=== PATIENT | male | born 1985 | race African-American/Black ===

== ENCOUNTER 2016-12-04 09:22 | Emergency (ER) | payer SELFPAY ==
[2016-12-04] MEDS ORDERED: Meclizine HCl 25 MG TAB ONE (10:04)
--- NOTE | 2016-12-04 10:24 | PICIS ---
[facility] EMERGENCY RECORD TRIAGE (FriDec 04, 2016 09:25 MCBE) TRIAGE NOTES: dizzy since yesterday. woke up dizzy with nausea. (FriDec 04, 2016 09:25 MCBE) PATIENT: NAME: Tera Zuniga II, AGE: 30, GENDER: male, : Fri1985, TIME OF GREET: FriDec 04, 2016 09:23, PREFERRED LANGUAGE: Slovenian, ETHNICITY: Not or , ECODE BILLING MAP: [facility], SSN: [id number], Zip Code: [address], KG WEIGHT: 102.06, PHONE: , , , PERSON ID: [id number]. (FriDec 04, 2016 09:25 MCBE) COMPLAINT: DIZZY. (FriDec 04, 2016 09:25 MCBE) ADMISSION: URGENCY: 3 Urgent, ADMISSION SOURCE: Home, TRANSPORT: CAR, BED: ER -02. (FriDec 04, 2016 09:25 MCBE) ASSESSMENT: Assessment: patient is in NAD. walked without difficulty from waiting room to room 2. patient reports when stands up that the room and items around him start to spin. patient reports that when he lays down that he has to lay on his back, if he lays on his side he feels dizzy and feels like he is going to vomit, Symptoms began 12/03/2016. (09:30 MCBE) IMMUNIZATIONS: Flu vaccine not up to date, Tetanus immunization up to date. (09:30 MCBE) SIRS SCORING: Heart Rate 55-109 (0), Temp range 96.8-101.1 (0), respiratory rate 12-24 (0), Mental Status altered: no (0), Infection or Suspected Infection: No. (09:30 MCBE) TRIAGE SCREENING: Patient denies suicidal ideation, Patient denies presence of domestic violence. (09:30 MCBE) PROVIDERS: TRIAGE NURSE: Niyah Flores. (FriDec 04, 2016 09:25 MCBE) VITAL SIGNS: BP 140/77, Pulse 82, Resp 18, Temp 98.9, (Oral), Pain 0, O2 Sat 98, on Room Air, Time 12/04/2016 09:26. (09:26 MCBE) PREVIOUS VISIT ALLERGIES: No Known Drug Allergies. (FriDec 04, 2016 09:25 MCBE) No Known Drug Allergies. (09:30 MCBE) KNOWN ALLERGIES No Known Drug Allergies CURRENT MEDICATIONS (09: MCBE) None VITAL SIGNS VITAL SIGNS: BP: 140/77, Pulse: 82, Resp: 18, Temp: 98.9 (Oral), Pain: 0, O2 sat: 98 on Room Air, Time: 12/04/2016 09:26. (09:26 MCBE) BP: 143/73, Pulse: 69, Resp: 15, Temp: 98.1, Pain: 0, O2 sat: 97 on RA, Time: 12/04/2016 10:09. (10:09 MCBE) NURSING ASSESSMENT: HEAD-TO-TOE (09:31 MCBE) CONSTITUTIONAL: Complex assessment performed, Patient arrives ambulatory, Gait steady, History obtained from patient, Patient appears comfortable, Patient cooperative, Patient alert, Oriented to &a-1R&a+25V*p+0X*s0838V*c202B*c15G*c2P*p-0X&a-25V&a+1R Name: Tera Zuniga II : 1985 M30 MedRec: [id number] AcctNum: [id number] Prepared: FriDec 04, 2016 10:56 by Interface Page 1 of 7 pMD [facility] EMERGENCY RECORD person, place and time, Skin warm, Skin dry, Skin normal in color, Mucous membranes pink, Mucous membranes moist, Patient is well-groomed. PAIN: Patient rates pain as 0 out of 10. NEURO: Pupils equally round and reactive to light, Able to close eyes, Face symmetrical, Speech normal, GCS:, Eye opening: (4) - Spontaneous, Verbal: (5) - Oriented/conversive, Motor: (6) - Obeys commands/Spontaneous, GCS Total: 15. ENT: Ear assessment findings include ear normal to inspection, Nasal assessment findings include nose normal to inspection, Mouth and throat assessment findings include mouth inspection normal. RESPIRATORY/CHEST: Breath sounds clear, Respiratory assessment findings include respiratory effort easy, Respirations regular, Conversing normally, Neck and chest exam findings include trachea midline, Chest expansion equal, Chest movement symmetrical, no signs of distress, no retractions noted. CARDIOVASCULAR: Cardiovascular assessment findings include heart rate normal, Heart rhythm normal sinus, Heart sounds normal, S1, S2, Left radial pulse +3(easily palpated, considered normal), Right radial pulse +3(easily palpated, considered normal). ABDOMEN: Abdomen assessment findings include abdomen symmetrical, Abdomen soft, non-tender, Bowel sound normal, no associated nausea, no associated vomiting, no associated diarrhea, no associated constipation. LEFT UPPER EXTREMITY: Left upper extremity assessment findings include capillary refill less than 2 seconds, Skin color normal to hand, Skin temperature to hand warm, Distal sensation intact, Muscle tone normal, radial pulse is +3, brachial pulse is +3, Inspection findings include: No pressure ulcer to the shoulder, Inspection findings include no pressure ulcer to the elbow, Inspection findings include no pressure ulcer. RIGHT UPPER EXTREMITY: Right upper extremity assessment findings include capillary refill less than 2 seconds, Skin color normal to hand, Skin temperature to hand warm, Distal sensation intact, Muscle tone normal, radial pulse is +3, brachial pulse is +3, Inspection findings include: No pressure ulcer to the shoulder, Inspection findings include no pressure ulcer to the elbow, Inspection findings include no pressure ulcer. LEFT LOWER EXTREMITY: Left lower extremity assessment findings include capillary refill less than 2 seconds, Skin color normal, Skin temperature warm, Distal sensation intact, Muscle tone normal, Inspection findings include no pressure ulcers to the hip, Inspection findings include no pressure ulcer to the sacrum, Inspection findings include no pressure ulcer to the heel, Inspection findings include no pressure ulcer. RIGHT LOWER EXTREMITY: Right lower extremity assessment findings include capillary refill less than 2 seconds, Skin color normal, Skin temperature warm, Distal sensation intact, Muscle tone normal, Inspection findings include no pressure ulcers to the hip, Inspection findings include no pressure ulcer to the sacrum, Inspection findings &a-1R&a+25V*p+0X*a6303A*c202B*c15G*c2P*p-0X&a-25V&a+1R Name: Tera Zuniga Dank ALEXANDER : 1985 M30 MedRec: [id number] AcctNum: [id number] Prepared: FriDec 04, 2016 10:56 by Interface Page 2 of 7 pMD [facility] EMERGENCY RECORD include no pressure ulcer to the heel, Inspection findings include no pressure ulcer. NURSING PROCEDURE: IN STORE MARKETING ASSOCIATE (09:33 [facility] PATIENT IDENTIFIER: Patient actively involved in identification process, Patient's identity verified by patient stating name, Patient's identity verified by patient stating date, Patient's identity verified by hospital ID bracelet. IN STORE MARKETING ASSOCIATE: Cardiac monitoring indicated for DIZZY, Patient placed on threat monitoring analyst, Heart rate: 82, showing normal sinus rhythm, Patient placed on non-invasive blood pressure monitor, with disposable blood pressure cuff applied, Patient placed on continuous pulse oximetry, Adult/pediatric oxisensor applied. NURSING PROCEDURE: DISCHARGE NOTE (:09 [facility] [place] DISCHARGE: Patient discharged to home, ambulating without assistance, driving self, unaccompanied, Summary of Care printed/ provided, Discharge instructions given to patient, Simple or moderate discharge teaching performed, by NIYAH LUO, EXPLAINED DISCHARGE INSTRUCTIONS. INSTRUCTED TO RETURN IF S/S WORSEN. SHOWED AND EXPLAINED INFORMATION ABOUT ENT. PATIENT VERBALLY ACKNOWLEDGED, Prescriptions given and instructions on side effects given, Name of prescription(s) given: VALUIM, Above person(s) verbalized understanding of discharge instructions and follow-up care, Patient treated and evaluated by physician. BELONGINGS: Belongings and valuables with patient upon arrival to the Emergency Department include:, Belongings and valuables with patient at time of discharge include:, jacket, pants, shirt, shoes, Belongings remain with patient, Valuables remain with patient. VITAL SIGNS: BP: 143, / 73, Pulse: 69, Resp: 15, Temp: 98.1, Pain: 0, O2 sat: 97, on: RA, Time: 1000. MEDICATION ADMINISTRATION SUMMARY Drug Name: meclizine oral, Dose Ordered: 25 mg, Route: Oral, Status: Given, Time: 10:12/04/2016, Drug Name: Valium oral, Dose Ordered: 5 mg, Route: Oral, Status: Held, Time: 10:12/04/2016, Detailed record available in Medication Service section. MEDICATION SERVICE meclizine oral: Order: meclizine oral (meclizine HCl) - Dose: 25 mg : Oral Schedule: Now Ordered by: Randy Jim MD Entered by: Randy Jim MD FriDec 04, 2016 10:03 , Acknowledged by: Niyah Flores FriDec 04, 2016 10:04 Documented as given by: Niyah Flores FriDec 04, 2016 10:09 Patient, Medication, Dose, Route and Time verified prior to administration. &a-1R&a+25V*p+0X*[id number]*c202B*c15G*c2P*p-0X&a-25V&a+1R Name: Tera Zuniga II : 1985 M30 MedRec: [id number] AcctNum: [id number] Prepared: FriDec 04, 2016 10:56 by Interface Page 3 of 7 pMD [facility] EMERGENCY RECORD Amount given: 1 TAB, Site: Medication administered P.O., Patient appears Awake and alert- acceptable, Correct patient, time, route, dose and medication confirmed prior to administration, Patient advised of actions and side-effects prior to administration, Allergies confirmed and medications reviewed prior to administration, Patient in position of comfort, Side rails up, Cart in lowest position, Call light in reach. Valium oral: Order: Valium oral (diazepam) - Dose: 5 mg : Oral Schedule: Now Ordered by: Randy Jim MD Entered by: Randy Jim MD FriDec 04, 2016 09:52 , Acknowledged by: Niyah Flores FriDec 04, 2016 09:58, Held by: Niyah Flores FriDec 04, 2016 10:03 Reason: Patient refused:PATIENT DENIES DUE TO NOT HAVING SOMEONE TO COME SIGN HIM UP. PATIENT STATES HE WILL GO GET PRESCRIPTION FILLED SOON HE LEAVES INSTEAD. HPI WEAK-DIZZY (09:49 BPIC) CHIEF COMPLAINT: Patient presents for evaluation of vertigo. HISTORIAN: History provided by patient, pt states that starting last night and into today, he feels like the room is spinning. If he lays flat on his back, his symptoms alleviate. However, if he turns to his side the symptoms return. When vertigo is present, the patient is nauseated. no actual vomiting. He also has been having sinus congestion recently. no fever or cough. LOCATION: Symptoms are generalized. ROS (09:47 BPIC) CONSTITUTIONAL: Negative constitutional review of systems, Historian denies chills, denies fever. EYES: Negative eye review of systems. ENT: Negative ears, nose, throat review of systems. CARDIOVASCULAR: Negative cardiovascular review of systems, Historian denies chest pain, denies palpitations. RESPIRATORY: Negative respiratory review of systems, Historian denies cough, denies shortness of breath. GI: Negative gastrointestinal review of systems, Historian denies abdominal pain, denies constipation, denies diarrhea. MUSCULOSKELETAL: Negative musculoskeletal review of systems. SKIN: Negative skin review of systems. NEUROLOGIC: Historian reports vertigo, vertigo goes away with staying still and worsens with quick head movements. ENDOCRINE: Negative endocrine review of systems. HEMO/LYMPHATIC: Normal hematologic/lymphatic system review. PSYCHIATRIC: Negative psychiatric review of systems. NOTES: All other ROS is negative except as listed in HPI. &a-1R&a+25V*p+0X*y1934D*c202B*c15G*c2P*p-0X&a-25V&a+1R Name: Tera Zuniga II : 1985 M30 MedRec: [id number] AcctNum: [id number] Prepared: FriDec 04, 2016 10:56 by Interface Page 4 of 7 pMD [facility] EMERGENCY RECORD PAST MEDICAL HISTORY MEDICAL HISTORY: Notes: sinusitis, Past medical history includes pulmonary disease, asthma. (09:30 MCBE) MALE SURGICAL HISTORY: Patient has no surgical history. (09:30 MCBE) PSYCHIATRIC HISTORY: Psychiatric history includes, anxiety. (09:30 MCBE) SOCIAL HISTORY: Patient is a former tobacco user, smoked cigars, Patient quit smoking in the past year, Patient denies alcohol use, Patient denies drug use,. (09:30 MCBE) NOTES: I have reviewed and agree with the PMH/PSxH/FamHx/SocHx obtained by the nurse. (09:47 BPIC) PHYSICAL EXAM (09:47 BPIC) CONSTITUTIONAL: Vital signs reviewed, Patient appears non toxic, Patient alert and oriented to person, place and time, Pt is in no apparent distress. HEAD: Head exam included findings of head atraumatic, normocephalic. EYES: Eye exam included findings of eyelids normal to inspection, Pupils equally round and reactive to light, Extraocular muscles intact. ENT: ENT exam normal, Nose exam normal, no nasal deformity, no bleeding from nares, Pharynx exam normal, Mouth exam normal, mucous membranes moist. NECK: Neck exam included findings of normal range of motion, Trachea midline. RESPIRATORY CHEST: Respiratory and chest exam normal, Breath sounds clear, No wheezing, No rales, Chest exam included findings of chest movement symmetrical, Chest expansion equal. CARDIOVASCULAR: Cardiovascular assessment normal, Cardiovascular exam included findings of heart rate regular rate and rhythm, Heart sounds normal. ABDOMEN MALE: Abdominal exam included findings of abdomen nontender, Bowel sounds normal, no mass, no pulsatile masses, no peritoneal signs, no rigidity, no guarding, no rebound. BACK: Back exam included findings of normal inspection, range of motion normal, no costovertebral angle tenderness. UPPER EXTREMITY: Upper extremity exam included findings of inspection normal, Range of motion normal. LOWER EXTREMITY: Lower extremity exam included findings of inspection normal, Range of motion normal. NEURO: Cranial nerves intact, no cerebellar deficits, Nystagmus present, horizontal, bilaterally, pt has fatigueable nystagmus that started after I quickly moved his head from right to left. no nystagmyus when laying still and asymptomatic, Neuro exam findings include patient oriented to person, place and time, Speech normal, no focal motor deficits, no focal sensory deficits. &a-1R&a+25V*p+0X*c8498W*c202B*c15G*c2P*p-0X&a-25V&a+1R Name: Tera Zuniga II : 1985 M30 MedRec: [id number] AcctNum: [id number] Prepared: FriDec 04, 2016 10:56 by Interface Page 5 of 7 D [facility] EMERGENCY RECORD SKIN: Skin exam included findings of skin warm, dry, and normal in color. LYMPHATIC: Lymphatic exam normal. PSYCHIATRIC: Psychiatric exam included findings of patient oriented to person place and time, Normal affect. EVENTS TRANSFER: Triage to Emergency Emergency Room -02. (09:25 MCBE) Removed from Emergency Emergency Room -02. (10:15 MCBE) DOCTOR NOTES (09:51 BPIC) TEXT: I discussed the diagnosis with the patient prior to discharge. All questions were answered. There is no indication for admission currently and the patient will follow up with his primary care physician. Any pertinent labs or imaging was reviewed and dicussed with the patient. If any new or emergent symptoms occur, the patient will return to the emergency department. PROBLEM LIST No recorded problems DIAGNOSIS (09:52 BPIC) FINAL: PRIMARY: Positional Vertigo. DISPOSITION PATIENT: Disposition Type: Discharge, Disposition: *Discharge Home, Condition: Good. (09:52 BPIC) Patient left the department. (10:15 MCBE) INSTRUCTION (09:54 BPIC) DISCHARGE: BENIGN POSITIONAL VERTIGO. FOLLOWUP: MD Geovanny, Jerry, Otolaryngology, [facility] [address], , [facility], -, Primary Care Referral Line, . SPECIAL: Thank you for [facility] Emergency Department for your care today! Please follow up with your primary doctor or with ENT in the next 2-3 days. Return to the emergency department with any other worsening or emergent symptoms. God bless you!. PRESCRIPTION (09:53 BPIC) Valium oral: TABLET : 5 mg : ORAL : Quantity: 5 Unit: mg Route: ORAL Schedule: every 4 hours prn Dispense: 30 Unit: tab(s) May substitute. Refills: No Refills . NOTES: No Refills. IMAGING (10:12 MCBE) *DISCHARGE INSTRUCTIONS RECEIPT: Image captured from scanner. *SUPPLY CHARGE SHEET: Image captured from scanner. &a-1R&a+25V*p+0X*b2896R*c202B*c15G*c2P*p-0X&a-25V&a+1R Name: Tera Zuniga II : 1985 M30 MedRec: [id number] AcctNum: [id number] Prepared: FriDec 04, 2016 10:56 by Interface Page 6 of 7 pMD [facility] EMERGENCY RECORD ADMIN (10:44 BPIC) DIGITAL SIGNATURE: MD Jim Bryan. Valente: BPGIO=MD Jim Bryan MCBE=Niyah Flores &a-1R&a+25V*p+0X*t5761U*c202B*c15G*c2P*p-0X&a-25V&a+1R Name: Tera Zuniga Dank ALEXANDER : 1985 M30 MedRec: [id number] AcctNum: [id number] Prepared: FriDec 04, 2016 10:56 by Interface Page 7 of 7 pMD MTDD
--- NOTE | 2016-12-04 10:30 | ERRECORD ---
[facility] EMERGENCY RECORD HPI WEAK-DIZZY (09:49 BPIC) CHIEF COMPLAINT: Patient presents for evaluation of vertigo. HISTORIAN: History provided by patient, pt states that starting last night and into today, he feels like the room is spinning. If he lays flat on his back, his symptoms alleviate. However, if he turns to his side the symptoms return. When vertigo is present, the patient is nauseated. no actual vomiting. He also has been having sinus congestion recently. no fever or cough. LOCATION: Symptoms are generalized. ROS (09:47 BPIC) CONSTITUTIONAL: Negative constitutional review of systems, Historian denies chills, denies fever. EYES: Negative eye review of systems. ENT: Negative ears, nose, throat review of systems. CARDIOVASCULAR: Negative cardiovascular review of systems, Historian denies chest pain, denies palpitations. RESPIRATORY: Negative respiratory review of systems, Historian denies cough, denies shortness of breath. GI: Negative gastrointestinal review of systems, Historian denies abdominal pain, denies constipation, denies diarrhea. MUSCULOSKELETAL: Negative musculoskeletal review of systems. SKIN: Negative skin review of systems. NEUROLOGIC: Historian reports vertigo, vertigo goes away with staying still and worsens with quick head movements. ENDOCRINE: Negative endocrine review of systems. HEMO/LYMPHATIC: Normal hematologic/lymphatic system review. PSYCHIATRIC: Negative psychiatric review of systems. NOTES: All other ROS is negative except as listed in HPI. PAST MEDICAL HISTORY MEDICAL HISTORY: Notes: sinusitis, Past medical history includes pulmonary disease, asthma. (09:30 MCBE) MALE SURGICAL HISTORY: Patient has no surgical history. (09:30 MCBE) PSYCHIATRIC HISTORY: Psychiatric history includes, anxiety. (09:30 MCBE) SOCIAL HISTORY: Patient is a former tobacco user, smoked cigars, Patient quit smoking in the past year, Patient denies alcohol use, Patient denies drug use,. (09:30 MCBE) NOTES: I have reviewed and agree with the PMH/PSxH/FamHx/SocHx obtained by the nurse. (09:47 BPIC) KNOWN ALLERGIES No Known Drug Allergies CURRENT MEDICATIONS (09:26 MCBE) &a-1R&a+25V*p+0X*u7485S*c202B*c15G*c2P*p-0X&a-25V&a+1R Name: Tera Zuniga II : 1985 M30 MedRec: [id number] AcctNum: [id number] Prepared: FriDec 04, 2016 10:50 by Interface Page 1 of 3 pMD [facility] EMERGENCY RECORD None VITAL SIGNS VITAL SIGNS: BP: 140/77, Pulse: 82, Resp: 18, Temp: 98.9 (Oral), Pain: 0, O2 sat: 98 on Room Air, Time: 12/04/2016 09:26. (09:26 MCBE) BP: 143/73, Pulse: 69, Resp: 15, Temp: 98.1, Pain: 0, O2 sat: 97 on RA, Time: 12/04/2016 10:09. (10:09 MCBE) PHYSICAL EXAM (09:47 BPIC) CONSTITUTIONAL: Vital signs reviewed, Patient appears non toxic, Patient alert and oriented to person, place and time, Pt is in no apparent distress. HEAD: Head exam included findings of head atraumatic, normocephalic. EYES: Eye exam included findings of eyelids normal to inspection, Pupils equally round and reactive to light, Extraocular muscles intact. ENT: ENT exam normal, Nose exam normal, no nasal deformity, no bleeding from nares, Pharynx exam normal, Mouth exam normal, mucous membranes moist. NECK: Neck exam included findings of normal range of motion, Trachea midline. RESPIRATORY CHEST: Respiratory and chest exam normal, Breath sounds clear, No wheezing, No rales, Chest exam included findings of chest movement symmetrical, Chest expansion equal. CARDIOVASCULAR: Cardiovascular assessment normal, Cardiovascular exam included findings of heart rate regular rate and rhythm, Heart sounds normal. ABDOMEN MALE: Abdominal exam included findings of abdomen nontender, Bowel sounds normal, no mass, no pulsatile masses, no peritoneal signs, no rigidity, no guarding, no rebound. BACK: Back exam included findings of normal inspection, range of motion normal, no costovertebral angle tenderness. UPPER EXTREMITY: Upper extremity exam included findings of inspection normal, Range of motion normal. LOWER EXTREMITY: Lower extremity exam included findings of inspection normal, Range of motion normal. NEURO: Cranial nerves intact, no cerebellar deficits, Nystagmus present, horizontal, bilaterally, pt has fatigueable nystagmus that started after I quickly moved his head from right to left. no nystagmyus when laying still and asymptomatic, Neuro exam findings include patient oriented to person, place and time, Speech normal, no focal motor deficits, no focal sensory deficits. SKIN: Skin exam included findings of skin warm, dry, and normal in color. LYMPHATIC: Lymphatic exam normal. PSYCHIATRIC: Psychiatric exam included findings of patient oriented to person place and time, Normal affect. &a-1R&a+25V*p+0X*p6544L*c202B*c15G*c2P*p-0X&a-25V&a+1R Name: Tera Zuniga II : 1985 M30 MedRec: [id number] AcctNum: [id number] Prepared: FriDec 04, 2016 10:50 by Interface Page 2 of 3 pMD [facility] EMERGENCY RECORD MEDICATION ADMINISTRATION SUMMARY Drug Name: meclizine oral, Dose Ordered: 25 mg, Route: Oral, Status: Given, Time: 10:09 12/04/2016, Drug Name: Valium oral, Dose Ordered: 5 mg, Route: Oral, Status: Held, Time: 10:03 12/04/2016, Detailed record available in Medication Service section. DOCTOR NOTES (09:51 BPIC) TEXT: I discussed the diagnosis with the patient prior to discharge. All questions were answered. There is no indication for admission currently and the patient will follow up with his primary care physician. Any pertinent labs or imaging was reviewed and dicussed with the patient. If any new or emergent symptoms occur, the patient will return to the emergency department. PROBLEM LIST No recorded problems DIAGNOSIS (09:52 BPIC) FINAL: PRIMARY: Positional Vertigo. PRESCRIPTION (09:53 BPIC) Valium oral: TABLET : 5 mg : ORAL : Quantity: 5 Unit: mg Route: ORAL Schedule: every 4 hours prn Dispense: 30 Unit: tab(s) May substitute. Refills: No Refills . NOTES: No Refills. DISPOSITION PATIENT: Disposition Type: Discharge, Disposition: *Discharge Home, Condition: Good. (09:52 BPIC) Patient left the department. (10:15 MCBE) Valente: BPIC=MD Jim Bryan MCBE=[place], Niyah &a-1R&a+25V*p+0X*s9969I*c202B*c15G*c2P*p-0X&a-25V&a+1R Name: Tera Zuniga Dank ALEXANDER : 1985 M30 MedRec: [id number] AcctNum: [id number] Prepared: FriDec 04, 2016 10:50 by Interface Page 3 of 3 pMD MTDD
== END 2016-12-04 10:09 | disposition home or self-care (01) ==
LOC: NAV ERS 09:22
DX: H81.49 Vertigo of central origin, unspecified ear (principal); J45.909 Unspecified asthma, uncomplicated; F41.9 Anxiety disorder, unspecified; Z87.891 Personal history of nicotine dependence
CPT/HCPCS: 99283

== ENCOUNTER 2017-02-22 23:48 | Emergency (ER) | payer SELFPAY ==
[2017-02-23] MEDS ORDERED: Sodium Chloride 0.9% 1,000 ML ONE (00:15)
[2017-02-23] MEDS ORDERED: diphenhydrAMINE HCl 50 MG/ML 1 ML VIAL ONE (00:15)
[2017-02-23] MEDS ORDERED: Metoclopramide HCl 10 MG/2 ML VIAL ONE (00:15)
[2017-02-23] MEDS ORDERED: Ketorolac Tromethamine 30 MG/ML VIAL ONE (00:15)
[2017-02-23] MEDS ORDERED: Sodium Chloride 0.9% 100 ML ONE (00:31)
== END 2017-02-23 01:50 | disposition home or self-care (01) ==
LOC: NAV ERS 23:48
DX: G43.909 Migraine, unspecified, not intractable, without status migrainosus (principal); J45.909 Unspecified asthma, uncomplicated; F41.9 Anxiety disorder, unspecified; F17.210 Nicotine dependence, cigarettes, uncomplicated
CPT/HCPCS: 96365; 96375; J1200; J1885; J2765; J7050

== ENCOUNTER 2017-03-12 15:51 | Emergency (ER) | payer SELFPAY ==
[2017-03-12] MEDS ORDERED: Sodium Chloride 0.9% 1,000 ML ONE (16:19)
[2017-03-12 16:32] LABS: #Basophils 0.1 thou/uL (0.0-0.2); #Eosinphils 0.1 thou/uL (0.0-0.7); #Lymphocytes 1.8 thou/uL (1.20-3.40); #Monocytes 0.6 thou/uL (0.11-0.59); #Neutrophils 3.3 thou/uL (1.40-6.50); %Basophils 0.9 % (0.0-1.0); %Eosinophils 2.5 % (0.0-10.0); %Lymphocytes 30.8 % (21.0-51.0); %Monocytes 9.6 % (0.0-10.0); %Neutrophils 56.2 % (42.0-75.0); Hemoglobin 16.3 g/dL (14.0-18.0); Mean Corpuscular HGB CONC 34.3 g/dL (32.0-36.0); Mean Corpuscular Hemoglobin 28.2 pg (27.0-31.0); Mean Corpuscular Volume 82.1 fl (80.0-94.0); Mean Platelet Volume 8.2 fL (7.4-10.4); Platelet Count 251 thou/uL (130-400); RBC Distribution Width 11.1 % (11.5-14.5); Red Blood Cell (RBC) Count 5.77 mill/uL (4.70-6.10); White Blood Cell (WBC) Count 5.9 thou/uL (4.8-10.8)
[2017-03-12 16:51] LABS: Anion Gap 16 mmol/L (10-20); BUN (Urea Nitrogen) 10 mg/dL (8.9-20.6); Calc. Creatinine Clearance 0 mL/min (70-130); Calcium 8.6 mg/dL (7.8-10.44); Carbon Dioxide 22 mmol/L (22-29); Chloride 104 mmol/L (98-107); Estimated GFR-MDRD Greater than 90; Glucose 125 mg/dL (70-105); Potassium 3.5 mmol/L (3.5-5.1); Sodium 138 mmol/L (136-145)
== END 2017-03-12 17:20 | disposition home or self-care (01) ==
LOC: NAV ERS 15:51
DX: R11.2 Nausea with vomiting, unspecified (principal); R19.7 Diarrhea, unspecified; J45.909 Unspecified asthma, uncomplicated; F41.9 Anxiety disorder, unspecified; F17.210 Nicotine dependence, cigarettes, uncomplicated
CPT/HCPCS: 36415; 80048; 85025; 96360; J7050